=== PATIENT | female | born 1945 | race Caucasian/White ===

== ENCOUNTER 2018-04-12 10:16 | Outpatient (CLI) | payer MEDICARE ==
--- NOTE | 2018-04-12 13:20 | RAD ---
CHEST 2 VIEWS: HISTORY: Dyspnea. COMPARISON: 02/10/10. FINDINGS: Cardiac silhouette and pulmonary vasculature are unremarkable. Mediastinum is midline. No confluent airspace consolidation, pneumothorax, or pleural fluid. Postoperative changes of the left shoulder. IMPRESSION: No active cardiopulmonary abnormalities are demonstrated. POS: [facility]
== END 2018-04-12 10:17 | disposition home or self-care (01) ==
LOC: EKG 10:16
PROVIDERS: ATTEND Psychiatry & Neurology Neurology
DX: R06.00 Dyspnea, unspecified (principal)
CPT/HCPCS: 71046; 93005; 93010

== ENCOUNTER 2018-04-18 12:51 | Observation (INO) | payer MEDICARE ==
[2018-04-18 13:38] LABS: Band 5 % (5-11); Eosinophils 1 % (0-10); Hemoglobin 14.8 g/dL (12.0-16.0); Lymphocytes 5 % (21-51); MDiff Complete? YES; Mean Corpuscular HGB CONC 33.9 g/dL (32.0-36.0); Mean Corpuscular Hemoglobin 27.1 pg (27.0-31.0); Mean Corpuscular Volume 79.9 fL (78.0-98.0); Monocytes 12 % (0-10); Neutrophil 76 % (42-75); PLT Morphology Comment Appears Adequate; Platelet Count 205 thou/uL (130-400); RBC Distribution Width 12.5 % (11.5-14.5); Reactive Lymphocytes 1 % (0-10); Red Blood Cell (RBC) Count 5.45 mill/uL (4.20-5.40); Toxic Granulation SLIGHT; Vacuoles SLIGHT; White Blood Cell (WBC) Count 16.5 thou/uL (4.8-10.8)
--- NOTE | 2018-04-18 13:43 | CT ---
CT OF THE BRAIN WITHOUT CONTRAST: Date: 04/18/18 COMPARISON: MRI brain dated 08/17/14. HISTORY: Syncope. Patient fell and hit head. TECHNIQUE: Multiple contiguous axial images were obtained in a CT of the brain without contrast. FINDINGS: There are a few scattered foci of low density in the subcortical and periventricular white matter, li [place] secondary to small vessel ischemic disease. No large confluent infarction is seen. There is no e vidence of hydrocephalus, intracranial hemorrhage, or extra-axial fluid collection. The calvarium and overlying soft tissues are unremarkable. The visualized paranasal sinuses and masto id air cells are well aerated. IMPRESSION: No evidence of acute intracranial abnormality. POS: [facility]
[2018-04-18 13:45] LABS: ALT (SGPT) 28 U/L (8-55); AST (SGOT) 15 U/L (5-34); Albumin 3.6 g/dL (3.4-4.8); Alkaline Phosphatase 49 U/L (40-150); Anion Gap 17 mmol/L (10-20); BUN (Urea Nitrogen) 21 mg/dL (9.8-20.1); CK (CPK) 16 U/L (29-168); CKMB 0.6 ng/mL (0-6.6); Calc. Creatinine Clearance 0 mL/min (70-130); Calcium 9.7 mg/dL (7.8-10.44); Carbon Dioxide 24 mmol/L (23-31); Chloride 100 mmol/L (98-107); Estimated GFR-MDRD 35; Globulin 2.7 g/dL (2.4-3.5); Glucose 113 mg/dL (80-115); Lipase 17 U/L (8-78); Potassium 3.5 mmol/L (3.5-5.1); Protein, Total 6.3 g/dL (6.0-8.3); Sodium 137 mmol/L (136-145); Troponin I 0.021 ng/mL (< 0.028)
--- NOTE | 2018-04-18 13:45 | RAD ---
SINGLE VIEW CHEST: Date: 04/18/18 COMPARISON: 02/10/10. HISTORY: Vomiting and dizziness. FINDINGS: Single view of the chest shows a normal sized cardiomediastinal silhouette. There is no evidence of c onsolidation, mass, or pleural effusion. Bone anchors are seen in the left humerus from prior left sh oulder surgery. IMPRESSION: No evidence of acute cardiopulmonary disease. POS: [facility]
[2018-04-18 14:24] LABS: Bilirubin Negative (Negative); Blood, Urine Small (Negative); Clarity Cloudy (Clear); Glucose, Urine (Dipstick) Negative (Negative); Leukocyte Moderate (Negative); Nitrite Negative (Negative); Protein, Urine (Dipstick) Trace mg/dL (Neg-Trace); Urobilinogen 0.2 mg/dL (0.2-1.0); pH, Urine 5.5 (5.0-9.0)
[2018-04-18 14:27] LABS: Bacteria/HPF 3+ HPF (None Seen)
[2018-04-18] MEDS ORDERED: cefTRIAXone\\ROCEPHIN 2 GM VIAL ONE (14:30)
[2018-04-18] MEDS ORDERED: Sodium Chloride 0.9% 100 ML ONE (14:30)
--- NOTE | 2018-04-18 15:40 | CT ---
CT ANGIOGRAM OF THE CHEST WITH CONTRAST: 04/18/18 HISTORY: Syncope. COMPARISON: Chest radiograph same day and 2009. FINDINGS: CT angiogram of the chest performed after the intravenous administration of contrast. 3D rendering is provided. Evaluation for embolism is limited due to the delayed phase of contrast. The majority of the contrast is within the aorta and not within the pulmonary vascular system. Within these limitations, no proxi mal segmental pulmonary arterial filling defect is appreciated. The pulmonary trunk size is normal. The aortic size is normal. No pericardial effusion. Heart size is normal. Calcified granuloma left lower lobe. Some scarring in the right upper lobe. No focal air space consol idation, pneumothorax or effusion. No acute osseous abnormality. No thoracic spine compression fractu re. Mid thoracic spine interosseous hemangioma is present. No displaced rib fracture. Prior cholecystectomy. IMPRESSION: 1. Within the limits of this examination, no proximal segmental pulmonary arterial filling defec t. 2. No acute inflammatory process in the chest. POS: [facility]
[2018-04-18 17:25] VITALS: BMI 41.5
[2018-04-18] MEDS ORDERED: Ondansetron ODT 4 MG TAB PO PRN (17:41)
--- NOTE | 2018-04-18 18:00 | PDOC.FPRHP ---
- History of Present Illness Chief Complaint: dizziness History of Present Illness: Pt presented to the [facility] ER after two days of chills and night sweats. Her may have had similar symptoms one week ago. She has not ate or drank much over this time period and has felt increased fatigue over the past week. 2 syncopal episodes over that time period x1 emesis. After the last syncopal episode she had an unwitnessed ground level fall and struck her head. She denies LOC during that time. Similar symptoms for 2 days duration 2 weeks ago, severe diarrheal/vomiting illness 6 weeks ago along with 20 other people. She reports mild L sided chest pain intermitently over the past 3 weeks and diarrhea for the past 6 months. ED Course: transferred from [facility] ER rocephin 2g elevated D-dimer: .52 CBC and CMP ordered CXR, Brain CT, Chest CT, EKG all negative - Allergies/Adverse Reactions Allergies Allergy/AdvReac Type Severity Reaction Status Date / Time hydrocodone [From [place]] Allergy Emesis Verified 04/18/18 17:12 soy Allergy Verified 04/18/18 17:12 - Home Medications Medication Instructions Recorded Confirmed Type Levothyroxine [Synthroid] 150 mcg PO QAM 12/19/13 04/18/18 History Baclofen 10 mg PO QID 04/18/18 04/18/18 History Diazepam [Valium] 2 mg PO TID 04/18/18 04/18/18 History Icosapent Ethyl [Vascepa] 1 gm PO BID- 04/18/18 04/18/18 History Liothyronine Sodium [Cytomel] 5 mcg PO BID 04/18/18 04/18/18 History Triamterene/Hydrochlorothiazid 1 each PO DAILY 04/18/18 04/18/18 History [Dyazide 37.5-25 Capsule] predniSONE 20 mg PO QAM- 04/18/18 04/18/18 History - History PMHx:Multiple Sclerosis, Polymyalgia rhuematica, Hypothyroid PSHx: C-sectionx2, lumbar spine FHx: Early onset heart disease Social: neg. - Review of Systems General: reports: fever/chills, night sweats, fatigue Eyes: denies: eye pain ENT: denies: nasal congestion, rhinorrhea Respiratory: reports: cough, shortness of breath Cardiovascular: reports: chest pain. denies: palpitation, edema Gastrointestinal: reports: nausea, vomiting, diarrhea. denies: constipation, GI bleeding Genitourinary: denies: incontinence Skin: denies: rashes Musculoskeletal: denies: pain, tenderness, stiffness, swelling Neurological: reports: syncope, weakness. denies: numbness, seizure Psychological: denies: anxiety, depression - Vital signs BP: [144/77] HR: [95] RR: [16] Tmax: [97.5] Pox: [96]% on [RA] Wt: [103 kg] - Physical Exam Constitutional: NAD, awake, alert and oriented HEENT: normocephalic and atraumatic, PERRLA, EOMI, grossly normal hearing, oropharynx clear Neck: supple, trachea midline, no thyromegaly, no bruits Chest: no-tender to palpation, no lesions Heart: RRR, normal S1/S2, no murmurs/rubs/gallops, pulses present, no edema Lungs: CTAB, no respiratory distress, good air movement, no rales/rhonchi, no wheezing Abdomen: soft, non-tender, bowel sounds present, no masses/distention Musculoskeletal: normal structure, ROM grossly normal Neurological: no focal deficit, CN II-XII intact Skin: no rash/lesions, no jaundice Heme/Lymphatic: no unusual bruising or bleeding Psychiatric: normal mood and affect FMR H&P: Results - Labs Result Diagrams: 04/18/18 13:21 04/18/18 13:21 Lab results: WBC 16.5 thou/uL (4.8-10.8) H 04/18/18 13:21 Hgb 14.8 g/dL (12.0-16.0) 04/18/18 13:21 Hct 43.6 % (36.0-47.0) 04/18/18 13:21 MCV 79.9 fL (78.0-98.0) 04/18/18 13:21 Plt Count 205 thou/uL (130-400) 04/18/18 13:21 Band Neuts % (Manual) 5 % (5-11) 04/18/18 13:21 Sodium 137 mmol/L (136-145) 04/18/18 13:21 Potassium 3.5 mmol/L (3.5-5.1) 04/18/18 13:21 Chloride 100 mmol/L (98-107) 04/18/18 13:21 Carbon Dioxide 24 mmol/L (23-31) 04/18/18 13:21 BUN 21 mg/dL (9.8-20.1) H 04/18/18 13:21 Creatinine 1.49 mg/dL (0.6-1.1) H 04/18/18 13:21 Glucose 113 mg/dL (80-115) 04/18/18 13:21 Calcium 9.7 mg/dL (7.8-10.44) 04/18/18 13:21 Total Bilirubin 1.0 mg/dL (0.2-1.2) 04/18/18 13:21 AST 15 U/L (5-34) 04/18/18 13:21 ALT 28 U/L (8-55) 04/18/18 13:21 Alkaline Phosphatase 49 U/L (40-150) 04/18/18 13:21 Creatine Kinase 16 U/L (29-168) L 04/18/18 13:21 CK-MB (CK-2) 0.6 ng/mL (0-6.6) 04/18/18 13:21 Serum Total Protein 6.3 g/dL (6.0-8.3) 04/18/18 13:21 Albumin 3.6 g/dL (3.4-4.8) 04/18/18 13:21 Lipase 17 U/L (8-78) 04/18/18 13:21 Urine Ketones Negative mg/dL (Negative) 04/18/18 14:20 Urine Blood Small (Negative) H 04/18/18 14:20 Urine Nitrite Negative (Negative) 04/18/18 14:20 Ur Leukocyte Esterase Moderate (Negative) H 04/18/18 14:20 Urine RBC 7-10 HPF (0-3) H 04/18/18 14:20 Urine WBC 11-20 HPF (0-3) H 04/18/18 14:20 Ur Squamous Epith Cells 7-10 HPF (0-3) H 04/18/18 14:20 Urine Bacteria 3+ HPF (None Seen) H 04/18/18 14:20 - EKG Interpretation EKG: normal sinus rhythm FMR H&P: A/P - Problem List (1) Syncopal episodes Current Visit: Yes Status: Acute Code(s): R55 - SYNCOPE AND COLLAPSE (2) Urinary tract infection Current Visit: Yes Status: Acute (3) Acute kidney injury Current Visit: Yes Status: Acute Code(s): N17.9 - ACUTE KIDNEY FAILURE, UNSPECIFIED (4) Polymyalgia rheumatica Current Visit: Yes Status: Acute Code(s): M35.3 - POLYMYALGIA RHEUMATICA (5) Multiple sclerosis Current Visit: Yes Status: Acute Code(s): G35 - MULTIPLE SCLEROSIS (6) Hypertension Current Visit: Yes Status: Acute Code(s): I10 - ESSENTIAL (PRIMARY) HYPERTENSION - Plan 1. Syncopal episode - hypovolemia vs arrythmia vs structural heart defect - CT, EKG, negative - orthostatics pending - TTE pending 2. Urinary Tract infection - wbc, bacteria, LE in urine - 2g rocephin given in ER - cultures pending 3. Acute kidney injury - BUN/CR elevated - monitor CMP - 140ml/hr LR 4. Chronic diarrhea - C. diff, campy antigen, and lactoferrin pending 5. multiple sclerosis - continue home meds 6. Polymyalgia Rheumatica - continue home meds 7. Hypothyroid - continue home meds - TSH pending Disposition/LOS: Will monitor overnight on telemetry, possible discharge tomorrow FMR H&P: Upper Level - Pertinent history Leanne Tran is a 72 year old female with multiple chronic medical problems who was transferred from [facility] ER due to concern for syncope. Her chief complaint is "chills/shaking" over the past 2 days. She reports falling down after standing up from her recliner. As she was walking to the kitchen, she states that she felt her legs become weak and she fell to the ground and hit her head. She does not believe she lost consciousness during this episode. She states that she heard a buzzing in her ears and felt like her vision was closing in prior to falling. She had a similar episode that occurred yesterday after getting up from the kitchen table. She denied any chest pain, dyspnea, palpitations prior to falling. No shaking, loss of control of bowel/bladder. No vertiginous symptoms. Of note, patient reports chronic diarrhea occurring over the past several weeks. She states that she has at least 6 episodes per day of small volume loose stools. She has undergone some sort of a workup with her type casting machine operator and has follow-up with him/her. In the emergency department, she received ASA 324 mg, a total of 2L NS, and Rocephin 2g. A d-dimer was performed was 0.52. CTA of the chest was negative. - Pertinent findings Vitals: T: 97.5 P: 95 RR: 16 SpO2: 96% on RA BP: 144/77 EKG: sinus arrhythmia; no evidence of ischemia CXR: no acute cardiopulmonary abnormalities CTA chest: CT Head: no acute intracranial abnormality. Physical Exam: General: alert and oriented x 4; in no apparent distress HEENT: normocephalic atraumatic; extraocular muscles intact; pupils equal round , reactive to light. moist mucous membranes Heart: regular rate and rhythm, no murmurs, rubs or gallops. Lungs: clear to auscultation bilaterally; no crackles, wheezes, or rhonchi Abomen: soft, non-tender to palpation Extremities:moves all extremities well; no peripheral edema; peripheral pulses intact Neuro: CN II-XII grossly intact; normal strength/sensation - Plan Date/Time: 04/18/18 1757 IChiqui, have evaluated this patient and agree with findings/plan as outlined by internet specialist resident. Pertinent changes/additions are listed here. 1. Syncope/Near syncope - differentials include neurogenic vs. cardiogenic vs. orthostasis, vs. vestibulocochlear causes vs. generalized weakness/fatigue - we will admit patient to telemetry for observation - Echocardiogram to rule out valvulopathy. - we will obtain orthostatic vitals - if no etiology identified, further outpatient evaluation may be warranted with neurology (Pt sees Dr. Hager) or ENT. 2. Acute kidney injury - Cr increased from baseline of 0.97 - likely related to dehydration. - continue IV fluids. 3. Chronic diarrhea - will order stool studies including fecal lactoferrin, c. diff screen, and campylobacter Ag. 4. Urinary tract infection - Pt has already received rocephin 2g. - will await cultures. 5. Polymyalgia Rheumatica - continue home medications. 6. 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 7. Multiple Sclerosis - continue home medications. 8. Hypertension - continue home medications. Attending Addendum - Attending Addendum Date/Time: 04/19/18 0040 I personally evaluated the patient and discussed the management with Dr. Cancino on 04/18/18 @8521 I agree with the History, Examination, Assessment and Plan documented above with any addition or exceptions noted below- Briefly this is a 72 year old female with h/o multiple sclerosis, polymyalgia rheumatica, and hypothyroidism who presents after a syncopal episode at home. Patient states that she has not been feeling well for about 1 1/2 weeks. She has had poor appetite and has had intermittent shaking chills. she had 2 episodes last week when she felt like she might pass out but was able to sit down and the feeling passed. She had a syncopal episode yesterday but was able to sit down. Today she fell onto the floor. She denies any dysuria, cough, abdominal pain. Does have diarrhea but she has had this for about 6 months with 5-6 loose stools per day. She did have N/V and worsened diarrhea about 6 weeks ago. and other family members were also ill then. PMH/PSH/All/Meds reviewed and agree with residents documentation. Afebrile VSS Exam repeated by me and agree with residents findings. Labs: WBC=16.5 Diff= 76N/5B/5L, BUN/Cr 21/1.49, U/A - sm blood, mod LE , 11-20 WBC, 3+ bacteria. CT brain- no acute findings. EKG- NSR, no st changes. A/P: 1) Syncope - most likely secondary to dehydration - continue IVF - continue cardiac monitors 2) UTI - continue iv antibiotics - urine culture pending 3) Chronic diarrhea - has not been evaluated for this - will send stool studies - may need GI evaluation at some point 4) Polymyalgia rheumatica on chronic po steroids - will give stress dose steroids given acute illness
[2018-04-18] MEDS: Lactated Ringer's 1,000 ML IV SCH (18:15)
[2018-04-18] MEDS: Liothyronine Sodium 5 MCG TAB PO SCH (20:30)
[2018-04-18] MEDS: Diazepam 2 MG TAB PO SCH (20:30)
[2018-04-18] MEDS: Baclofen 10 MG TAB PO SCH (20:30)
[2018-04-18] MEDS ORDERED: predniSONE 20 MG TAB PO SCH (22:00)
[2018-04-18] MEDS: Acetaminophen 325 MG TAB PO PRN (23:08)
[2018-04-19] MEDS: Lactated Ringer's 1,000 ML IV SCH ×3 (01:04→18:31)
[2018-04-19] MEDS: Levothyroxine 150 MCG TAB PO SCH (05:27)
--- NOTE | 2018-04-19 06:01 | PDOC.FM ---
- Subjective Subjective: Pt is feeling well this morning. Last night had subjective chills and home steroid dosage was increased to stress dose to compensate for acute illness. Pt reports feeling significantly better but had sweat through the night. Still no BM for stool studies. No nausea/vomiting since admission. ROS: chills, no fever, no sob or cough, no cp or palpitations, no n/v, no dysuria/hematuria - Objective MAR Reviewed: Yes Vital Signs & Weight: Vital Signs (12 hours) Temp Pulse Resp BP BP BP BP 04/19/18 05:25 97.5 F L 73 16 132/69 04/19/18 00:01 98.2 F 04/18/18 23:05 100.1 F H 132 H 16 144/86 H 04/18/18 20:15 97.7 F 99 16 04/18/18 19:15 97.7 F 99 16 129/75 153/88 H 131/66 Pulse Ox 04/19/18 05:25 96 04/19/18 00:01 04/18/18 23:05 94 L 04/18/18 20:15 04/18/18 19:15 95 Weight Weight 103.107 kg I&O: 04/17/18 04/18/18 04/19/18 06:59 06:59 06:59 Intake Total 2375 Output Total 750 Balance 1625 Result Diagrams: 04/19/18 05:54 04/19/18 05:54 <Kodi Gamez - Last Filed: 04/19/18 08:44> - Objective Vital Signs & Weight: Vital Signs (12 hours) Temp Pulse Pulse Pulse Resp BP BP 04/19/18 11:04 97.7 F 85 18 04/19/18 09:55 87 100 175/86 H 195/90 H 04/19/18 08:31 77 04/19/18 08:00 97.5 F L 77 16 04/19/18 07:10 97.5 F L 83 18 04/19/18 05:25 97.5 F L 73 16 BP BP BP BP Pulse Ox 04/19/18 11:04 141/73 H 95 04/19/18 09:55 04/19/18 08:31 130/73 163/89 H 138/75 04/19/18 08:00 04/19/18 07:10 127/77 95 04/19/18 05:25 132/69 96 Weight Weight 103.107 kg I&O: 04/18/18 04/19/18 04/20/18 06:59 06:59 06:59 Intake Total 2375 600 Output Total 750 1500 Balance 1625 -900 Result Diagrams: 04/19/18 05:54 04/19/18 05:54 <GabrielaFelicia - Last Filed: 04/19/18 16:20> Phys Exam - Physical Examination Constitutional: NAD HEENT: moist MMs, sclera anicteric Respiratory: no wheezing, clear to auscultation bilateral Cardiovascular: RRR, no significant murmur Gastrointestinal: soft, non-tender, positive bowel sounds Musculoskeletal: no edema Psychiatric: normal affect Skin: no rash, normal turgor <Kodi Gamez - Last Filed: 04/19/18 08:44> Dx/Plan (1) Syncopal episodes Code(s): R55 - SYNCOPE AND COLLAPSE Status: Acute (2) Gastroenteritis Code(s): K52.9 - NONINFECTIVE GASTROENTERITIS AND COLITIS, UNSPECIFIED Status : Acute (3) Urinary tract infection Status: Acute (4) Multiple sclerosis Code(s): G35 - MULTIPLE SCLEROSIS Status: Acute (5) Polymyalgia rheumatica Code(s): M35.3 - POLYMYALGIA RHEUMATICA Status: Acute (6) Diarrhea Code(s): R19.7 - DIARRHEA, UNSPECIFIED Status: Acute (7) Hypertension Code(s): I10 - ESSENTIAL (PRIMARY) HYPERTENSION Status: Acute - Plan Plan: Syncope/near syncope A- Likely due to hypovolemia. differentials include neurogenic vs. cardiogenic vs. vestibulocochlear causes vs. generalized weakness/fatigue. P- Echocardiogram to rule out valvulopathy. - if no etiology identified, further outpatient evaluation may be warranted with neurology (Pt sees Dr. Hager) or ENT. Urinary tract infection A- Pt has already received rocephin 2g. P- will await cultures. Acute kidney injury A- Cr increased from baseline of 0.97, likely related to dehydration. P- continue IV fluids. Gastritis/chronic diarrhea A- pt reports 6 month history of diarhea with recent nausea/vomiting on three separate occasions P- ordered stool studies including fecal lactoferrin, c. diff screen, and campylobacter Ag. Polymyalgia Rheumatica A- Pt experienced chills last night. 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 Multiple Sclerosis - continue home medications. Hypertension - continue home medications. <Kodi Gamez - Last Filed: 04/19/18 08:44> Attending Addendum - Attending Addendum Date/Time: 04/19/18 1734 I personally evaluated the patient and discussed the management with Dr. Gamez. I agree with the History, Examination, Assessment and Plan documented above with any addition or exceptions noted below. The patient presented with syncopal episode. Found to have UTI. Culture is pending. She also has MS and her steroids were increased last night and this morning she is feeling much better. No diarrhea this morning. Will had carotid doppler. Echo results pending. If all tests are ok she will like dc home today or tomorrow. <Felicia Ochoa - Last Filed: 04/19/18 16:20>
[2018-04-19 06:23] LABS: #Basophils 0.1 thou/uL (0.0-0.2); #Lymphocytes 0.5 thou/uL (1.20-3.40); #Monocytes 0.3 thou/uL (0.11-0.59); #Neutrophils 11.9 thou/uL (1.40-6.50); %Basophils 0.5 % (0.0-1.0); %Eosinophils 0.1 % (0.0-10.0); %Monocytes 2.1 % (0.0-10.0); %Neutrophils 93.2 % (42.0-75.0); Hemoglobin 14.4 g/dL (12.0-16.0); Mean Corpuscular HGB CONC 33.1 g/dL (32.0-36.0); Mean Corpuscular Hemoglobin 28.2 pg (27.0-31.0); Mean Corpuscular Volume 85.1 fL (78.0-98.0); Mean Platelet Volume 7.2 fL (7.4-10.4); Platelet Count 185 thou/uL (130-400); RBC Distribution Width 13.7 % (11.5-14.5); White Blood Cell (WBC) Count 12.7 thou/uL (4.8-10.8)
[2018-04-19 06:44] LABS: Anion Gap 12 mmol/L (10-20); BUN (Urea Nitrogen) 16 mg/dL (9.8-20.1); Calc. Creatinine Clearance 75 mL/min (70-130); Calcium 8.8 mg/dL (7.8-10.44); Carbon Dioxide 24 mmol/L (23-31); Chloride 105 mmol/L (98-107); Estimated GFR-MDRD 48; Glucose 195 mg/dL (80-115); Potassium 3.5 mmol/L (3.5-5.1); Sodium 137 mmol/L (136-145)
[2018-04-19] MEDS ORDERED: (Icosapent Ethyl [Vascepa] 1 GM) PO SCH (08:00)
[2018-04-19] MEDS ORDERED: predniSONE 20 MG TAB PO SCH (08:00)
[2018-04-19] MEDS: predniSONE 20 MG TAB PO SCH (08:09)
[2018-04-19] MEDS: Diazepam 2 MG TAB PO SCH ×3 (08:09→21:41)
[2018-04-19] MEDS: Baclofen 10 MG TAB PO SCH ×4 (08:09→21:41)
[2018-04-19] MEDS: Triamterene/Hydrochlorothiazide 37.5 mg/25 mg Tablet PO SCH (08:09)
[2018-04-19] MEDS: Liothyronine Sodium 5 MCG TAB PO SCH ×2 (09:39→21:41)
[2018-04-19] MEDS ORDERED: cefTRIAXone\\ROCEPHIN 2 GM VIAL IM SCH (14:00)
--- NOTE | 2018-04-19 14:47 | ULT ---
CAROTID DUPLEX SONOGRAM: History: Syncope. Vascular disease. FINDINGS: Right: Color and spectral doppler evaluation, peak systolic velocity of 87 cm/sec, and IC to CC ratio of 1.1 suggests no hemodynamically significant stenosis within the extracranial right ICA. Posterior to the distal common carotid artery, an arterial structure shows waveform suggestive of a muscular c apillary bed distally. Left: No significant plaque. Color and spectral doppler evaluation, peak systolic velocity of 79 cm/s ec, and IC to CC ratio of 0.7 suggests no hemodynamically significant stenosis within the extracrania l left ICA. Antegrade flow within the vertebral artery. Posterior to the distal common carotid artery , an arterial structure shows high resistance of pulsatility. IMPRESSION: 1. No sonographic evidence of significant extracranial ICA stenosis. 2. 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 CT arteriogram of the neck could be used for further characterization if needed. POS: [facility]
[2018-04-19] MEDS ORDERED: cefTRIAXone\\ROCEPHIN 2 GM in Sodium Chloride 0.9% 100 ML IVPB SCH (15:00)
[2018-04-19] MEDS: Acetaminophen 325 MG TAB PO PRN (16:09)
--- NOTE | 2018-04-19 17:06 | EKG ---
Test Reason : STAT Blood Pressure : / mmHG Vent. Rate : 107 BPM Atrial Rate : 107 BPM P-R Int : 120 ms QRS Dur : 080 ms QT Int : 306 ms P-R-T Axes : 001 -12 016 degrees QTc Int : 408 ms Sinus tachycardia with Premature atrial complexes Inferior infarct , age undetermined Abnormal ECG When compared with ECG of 12-APR-2018 11:21, (Unconfirmed) Premature atrial complexes are now Present Confirmed by DR. Juan YANG ([id number]) on 04/19/2018 5:05:47 PM Referred By: SOM Confirmed By:DR. Juan YANG
[2018-04-20] MEDS: Levothyroxine 150 MCG TAB PO SCH (05:56)
--- NOTE | 2018-04-20 06:16 | PDOC.FM ---
- Subjective Subjective: 72 yo female seen this AM. Patient is in good mood. Patient states she is ready to be discharged. She states that her diarrhea returned yesterday, but was unable to give sample because of urine contamination. Patient denies any lightheadedness, vision changes, chest pain, or SOB. Patient states that she has GI follow up as outpatient and her colon problems have been present for 6 months. No other complaints today. - Objective Vital Signs & Weight: Vital Signs (12 hours) Temp Pulse Resp BP Pulse Ox 04/20/18 04:49 97.8 F 77 22 H 155/74 H 95 04/20/18 00:08 97.7 F 73 20 164/87 H 97 04/19/18 20:20 99 F 74 21 H 157/74 H 92 L 04/19/18 20:05 99 F 74 21 H Weight Weight 103.107 kg I&O: 04/18/18 04/19/18 04/20/18 06:59 06:59 06:59 Intake Total 2375 2660 Output Total 750 1650 Balance 1625 1010 Result Diagrams: 04/19/18 05:54 04/19/18 05:54 <Arnulfo Soria - Last Filed: 04/20/18 07:23> - Objective Vital Signs & Weight: Vital Signs (12 hours) Temp Pulse Resp BP Pulse Ox 04/20/18 09:30 168/90 H 04/20/18 08:15 98.4 F 89 16 04/20/18 07:30 98.4 F 89 16 195/112 H 96 04/20/18 04:49 97.8 F 77 22 H 155/74 H 95 04/20/18 00:08 97.7 F 73 20 164/87 H 97 Weight Weight 103.107 kg I&O: 04/19/18 04/20/18 04/21/18 06:59 06:59 06:59 Intake Total 2375 2660 Output Total 750 2550 Balance 1625 110 Result Diagrams: 04/19/18 05:54 04/19/18 05:54 <Felicia Ochoa - Last Filed: 04/20/18 10:01> Phys Exam - Physical Examination Constitutional: NAD HEENT: PERRLA, moist MMs Neck: no nodes Respiratory: no wheezing, clear to auscultation bilateral Cardiovascular: RRR, no significant murmur Gastrointestinal: soft, non-tender, no distention, positive bowel sounds Musculoskeletal: no edema, pulses present Neurological: non-focal, normal sensation, moves all 4 limbs Lymphatic: no nodes Psychiatric: normal affect, A&O x 3 Skin: no rash <Arnulfo Soria - Last Filed: 04/20/18 07:23> Dx/Plan (1) Syncopal episodes Code(s): R55 - SYNCOPE AND COLLAPSE Status: Acute (2) Urinary tract infection Status: Acute (3) Acute kidney injury Code(s): N17.9 - ACUTE KIDNEY FAILURE, UNSPECIFIED Status: Resolved (4) Diarrhea Code(s): R19.7 - DIARRHEA, UNSPECIFIED Status: Acute (5) Gastroenteritis Code(s): K52.9 - NONINFECTIVE GASTROENTERITIS AND COLITIS, UNSPECIFIED Status : Acute (6) Hypertension Code(s): I10 - ESSENTIAL (PRIMARY) HYPERTENSION Status: Acute (7) Multiple sclerosis Code(s): G35 - MULTIPLE SCLEROSIS Status: Acute (8) Polymyalgia rheumatica Code(s): M35.3 - POLYMYALGIA RHEUMATICA Status: Acute - Plan Plan: Syncope/near syncope - Likely due to hypovolemia. - Echocardiogram to rule out valvulopathy. Awaiting read. - Carotid dopplers negative Urinary tract infection - Pt has already received rocephin 2g. - will await cultures for further treatment Acute kidney injury - Cr increased from baseline of 0.97, likely related to dehydration. - D/C IVF. Gastritis/chronic diarrhea - pt reports 6 month history of diarrhea with recent nausea/vomiting on three separate occasions - ordered stool studies including fecal lactoferrin, c. diff screen, and campylobacter Ag. - haven't obtained sample yet - May be better for outpatient follow up. Polymyalgia Rheumatica - Continue home steroid doses Hypothyroidsm - continue home medications. - TSH low, but T4 appropriate Multiple Sclerosis - continue home medications. Hypertension - continue home medications. Disposition: Stable, patient can be discharged once echo read is received. <Arnulfo Soria - Last Filed: 04/20/18 07:23> Attending Addendum - Attending Addendum Date/Time: 04/20/18 0955 I personally evaluated the patient and discussed the management with Dr. Soria. I agree with the History, Examination, Assessment and Plan documented above with any addition or exceptions noted below. Changing to PO antibiotics. Pt is feeling better and wants to go home. Echo has been taken but hasn't resulted. Carotid doppler is negative. Today is last day for stress dose steroids. Pt will likely d/c this afternoon and we will f/u with the echo results as an outpt. She has follow-up with Dr. Swanson on Sunday. She will also f/u with GI as an outpt as she has been unable to give stool sample. <Felicia Ochoa - Last Filed: 04/20/18 10:01>
[2018-04-20] MEDS ORDERED: Nitrofurantoin Monohyd/M-Cryst 100 MG CAP PO SCH ×2 (07:00→21:00)
[2018-04-20] MEDS: Diazepam 2 MG TAB PO SCH (08:36)
[2018-04-20] MEDS: predniSONE 20 MG TAB PO SCH (08:36)
[2018-04-20] MEDS: Triamterene/Hydrochlorothiazide 37.5 mg/25 mg Tablet PO SCH (08:36)
[2018-04-20] MEDS: Baclofen 10 MG TAB PO SCH (08:36)
[2018-04-20] MEDS: Liothyronine Sodium 5 MCG TAB PO SCH (08:36)
[2018-04-20 11:41] VITALS: BP 135/87; TEMP 98.1
--- NOTE | 2018-04-23 08:15 | DIS-2 ---
DATE OF ADMISSION: 04/18/2018 DATE OF DISCHARGE: 04/20/2018 RESIDENT: Kodi Gamez MD ADMITTING ATTENDING: Lia Estes MD DISCHARGE ATTENDING: Felicia Ochoa MD CONSULTATION: None. PROCEDURES: Include; 1. Chest x-ray on 04/18/2018, reading, no evidence of acute pulmonary disease. 2. Brain CT on 04/18/2018, reading, no evidence of acute intracranial abnormality. 3. Chest thorax CTA reading within the limits of this examination, no proximal segmental pulmonary a rterial filling defect. No acute inflammatory process in the chest. 4. Carotid Doppler study, this is on 04/19/2018, reading, no sonographic evidence of significant ext racranial ICA stenosis. Arterial structures just posterior to each distal common carotid artery, may reflect congenital variant in early branching of an external carotid branch. CT arteriogram of the neck could be used for further characterization if needed. 5. Electrocardiogram on 04/19/2018, reading, sinus tachycardia with premature atrial complexes, infe rior infarct, age undetermined. When compared with ECG of 04/12/2018, premature atrial complexes are now present. 6. Echocardiogram report, reading, technically inadequate exam, recommend a repeat exam. Ejection f raction is visually estimated at 55-60%, normal left atrium, left ventricular size is normal. Aortic valve leaflets are somewhat thickened. The aortic valve leaflets were not well visualized. PRIMARY DIAGNOSES: Syncope, likely due to hypovolemia and UTI and chronic diarrhea. SECONDARY DIAGNOSES: Include acute kidney injury, gastritis, polymyalgia rheumatica, multiple sclero sis, hypothyroidism, and hypertension. DISCHARGE MEDICATIONS: Include levothyroxine 150 mcg p.o. q.a.m., diazepam 2 mg p.o. t.i.d., baclofe n 10 mg p.o. q.i.d., icosapent ethyl 1 gram p.o. b.i.d. with meal, liothyronine sodium 5 mcg p.o. b.i .d., prednisone 20 mg p.o. q.a.m., triamterene and hydrochlorothiazide 37.5/25 capsule 1 capsule p.o. daily, nitrofurantoin 100 mg p.o. b.i.d. 5 days and prednisone 60 mg p.o. q.a.m. 1 day. HISTORY OF PRESENT ILLNESS AND HOSPITAL COURSE: This is a 72-year-old female with medical history of multiple sclerosis, polymyalgia rheumatica, and hypothyroidism, presenting for 2 days of chills and night sweats with associated decreased p.o. intake. Patient reports a 6-month history of diarrhea an d 2 episodes of unwitnessed syncope, reporting a ground-level fall with no loss of consciousness. Sh e also reports mild left chest pain for the last 3 weeks intermittently and similar symptoms of fever s, chills, and night sweats 2 weeks ago and 6 weeks ago. At the ED, the patient received a chest x-r ay which was negative, head CT which was negative, chest CT which was negative, and an EKG which was negative. White blood count in the ER was 16.5. BUN and creatinine was 21 and 1.49, heart rate in [facility] ED was 95. She was given 2 liters normal saline and 2 grams of Rocephin. Later evaluation showed her to have a UTI with cultures later growing E. coli. An echo was later done to evaluate for valvu lar problems, which was negative. Orthostatics were done, which were also negative. Carotid Doppler s were done, which were also negative. Upon receiving IV fluids, the patient began to feel much bett er. Other hospital complications were her first night she began to feel chills, so she was started o n a 3-day increase stress dose of her home medication prednisone. Over the course of 2 days, her sym ptoms of diarrhea were resolved as were her chills and night sweats. After ruling out acutely danger ous causes of syncope, she was discharged home. There were no consults. DISPOSITION: Stable. DISCHARGE INSTRUCTIONS: Include: 1. Location: Discharge home. 2. Diet: Healthy heart diet. 3. Activity: As tolerated. 4. Followup: Follow up with her PCP, Dr. Swanson within 1-2 weeks with her neurologist, Dr. Hager with in 1-2 weeks and with a GI specialist within 1-2 weeks.
== END 2018-04-20 12:56 | disposition home or self-care (01) ==
LOC: SCSER 12:51 → 2SW 14:58
PROVIDERS: ADMIT Emergency Medicine; ATTEND Emergency Medicine
DX: R55 Syncope and collapse (principal); N39.0 Urinary tract infection, site not specified; K52.9 Noninfective gastroenteritis and colitis, unspecified; N17.9 Acute kidney failure, unspecified; M35.3 Polymyalgia rheumatica; E03.9 Hypothyroidism, unspecified; I10 Essential (primary) hypertension; G35 Multiple sclerosis; Z79.899 Other long term (current) drug therapy
CPT/HCPCS: 70450; 71045; 71275; 80048; 80053; 82533 ×2; 82550; 82553; 83690; 84439; 84443; 84484; 85025 ×2; 85379; 87077; 87086; 87186; 93005 ×2; 93306; 93880; 96361 ×3; 96365; 96366; 97139 ×2; 99285; G0378; G8978; G8979; G8980; 36415; 81003; 81015; 93010; J0696; J7050; J7506

== ENCOUNTER 2018-06-10 11:56 | Outpatient (CLI) | payer MEDICARE | END 2018-06-10 11:57 | disposition home or self-care (01) | LOC: BICRAD 11:56 | PROVIDERS: ATTEND Family Medicine | DX: S92.502A Displaced unspecified fracture of left lesser toe(s), initial encounter for closed fracture (principal) ==

== ENCOUNTER 2019-02-06 08:28 | Outpatient (CLI) | payer MEDICARE ==
--- NOTE | 2019-02-06 09:53 | CT ---
CT ABDOMEN AND PELVIS WITH CONTRAST: COMPARISON: 01/24/2017. HISTORY: Chronic diarrhea. TECHNIQUE: Multiple contiguous axial images were obtained in a CT of the abdomen and pelvis with contrast. P.o. contrast was administered. Coronal reformats were performed. FINDINGS: There is scattered diverticula in the colon. There is an area of focal thickening of the sigmoid col on measuring approximately 2.7 cm in length. This was not seen on the prior examination. No free ai r, free fluid, or stranding changes are seen in the abdomen or pelvis. The small bowel and appendix are unremarkable. The patient is status post cholecystectomy. A small amount of hypodensity adjacent to the falciform ligament likely represents focal fatty infiltration. Calcifications in the liver and spleen are from prior granulomatous disease. The kidneys, adrenal glands, and pancreas are unremarkable. No abdominal or pelvic lymphadenopathy are seen. The reproductive organs are unremarkable. Atherosc lerotic calcifications are seen in the aorta. Degenerative changes and postsurgical changes are seen in the spine. The abdominal wall soft tissues are unremarkable. There is a calcified granuloma in the left lung base. IMPRESSION: 1. Diverticulosis. 2. Focal thickening within the sigmoid colon. Although this could represent scarring from inflammat ory change from prior diverticulitis, a colonic mass is also a possibility. POS: [facility]
[2019-02-06] MEDS ORDERED: ISOVUE-370 76%-LOCM 1 ML ONE (11:12)
== END 2019-02-06 08:29 | disposition home or self-care (01) ==
LOC: BICCT 08:28
PROVIDERS: ATTEND Internal Medicine Gastroenterology
DX: K52.9 Noninfective gastroenteritis and colitis, unspecified (principal); M19.90 Unspecified osteoarthritis, unspecified site; K57.30 Diverticulosis of large intestine without perforation or abscess without bleeding; K63.89 Other specified diseases of intestine
CPT/HCPCS: 74177; 82565; Q9966

== ENCOUNTER 2019-02-20 06:19 | Emergency (ER) | payer MEDICARE ==
[2019-02-20] MEDS ORDERED: Nitroglycerin 2% Ointment 1 INCH/1 GM Packet ONE (07:02)
[2019-02-20] MEDS ORDERED: Aspirin Chewable 81 MG TAB ONE (07:02)
[2019-02-20 07:20] LABS: #Basophils 0.1 thou/uL (0.0-0.2); #Eosinphils 0.2 thou/uL (0.0-0.7); #Lymphocytes 2.1 thou/uL (1.20-3.40); #Monocytes 0.6 thou/uL (0.11-0.59); #Neutrophils 4.5 thou/uL (1.40-6.50); %Basophils 0.8 % (0.0-1.0); %Eosinophils 2.4 % (0.0-10.0); %Lymphocytes 28.6 % (21.0-51.0); %Monocytes 7.9 % (0.0-10.0); %Neutrophils 60.3 % (42.0-75.0); Hemoglobin 13.2 g/dL (12.0-16.0); Mean Corpuscular HGB CONC 31.2 g/dL (32.0-36.0); Mean Corpuscular Hemoglobin 26.5 pg (27.0-31.0); Mean Platelet Volume 8.4 fL (7.4-10.4); Platelet Count 210 thou/uL (130-400); RBC Distribution Width 14.4 % (11.5-14.5); Red Blood Cell (RBC) Count 4.97 mill/uL (4.20-5.40); White Blood Cell (WBC) Count 7.4 thou/uL (4.8-10.8)
[2019-02-20 07:37] LABS: ALT (SGPT) 27 U/L (8-55); AST (SGOT) 21 U/L (5-34); Albumin 3.9 g/dL (3.4-4.8); Alkaline Phosphatase 45 U/L (40-150); Anion Gap 13 mmol/L (10-20); BUN (Urea Nitrogen) 20 mg/dL (9.8-20.1); Bilirubin, Total 0.7 mg/dL (0.2-1.2); CK (CPK) 77 U/L (29-168); Calc. Creatinine Clearance 0 mL/min (70-130); Calcium 8.9 mg/dL (7.8-10.44); Carbon Dioxide 21 mmol/L (23-31); Chloride 110 mmol/L (98-107); Estimated GFR-MDRD 57; Globulin 2.3 g/dL (2.4-3.5); Glucose 100 mg/dL (83-110); Lipase 20 U/L (8-78); Potassium 3.3 mmol/L (3.5-5.1); Protein, Total 6.2 g/dL (6.0-8.3); Sodium 141 mmol/L (136-145)
--- NOTE | 2019-02-20 07:46 | RAD ---
Chest AP view INDICATION: Chest pain COMPARISON: April 18, 2018 FINDINGS: Lungs:The lungs are clear Cardiac silhouette pulmonary vasculature:The cardiomediastinal silhouette appears within normal limit s. Pleural spaces:No pleural effusion or pneumothorax is demonstrated. Upper abdomen:No abnormality seen. Osseous structures: There is scattered degenerative and osteoarthritic change present. There is stabl e postsurgical change of a left rotator cuff repair. IMPRESSION: No acute cardiopulmonary abnormality.
--- NOTE | 2019-02-20 09:57 | CT ---
CT arteriogram chest with IV contrast and 3-D imaging HISTORY: Chest pain. COMPARISON: 04/18/2018. FINDINGS: There is good contrast opacification pulmonary arteries and thoracic aorta with normal bran jaime of the great vessels at the aortic arch. Calcification in the arterial structures. Mild linear scarring within the anterior aspect of the right upper lobe. No pleural fluid or pneumothorax. No mediastinal adenopathy evident. IMPRESSION: No CT evidence of pulmonary embolus. Atherosclerosis.
[2019-02-20] MEDS ORDERED: ISOVUE-370 76%-LOCM 1 ML ONE (11:43)
--- NOTE | 2019-02-22 19:39 | EKG ---
Test Reason : REPEAT Blood Pressure : / mmHG Vent. Rate : 073 BPM Atrial Rate : 073 BPM P-R Int : 128 ms QRS Dur : 076 ms QT Int : 370 ms P-R-T Axes : -03 -07 014 degrees QTc Int : 407 ms Normal sinus rhythm Minimal voltage criteria for LVH, may be normal variant Cannot rule out Anterior infarct , age undetermined Abnormal ECG Confirmed by JADIEL CLAYTON DO ([id number]), senior editor NEISHA MURO ([id number]) on 02/22/2019 7:37:33 PM Referred By: Confirmed By:JADIEL CLAYTON DO
== END 2019-02-20 11:33 | disposition home or self-care (01) ==
LOC: ERS 06:19
DX: R07.9 Chest pain, unspecified (principal); E03.9 Hypothyroidism, unspecified; G35 Multiple sclerosis; M35.3 Polymyalgia rheumatica; I10 Essential (primary) hypertension; Z79.899 Other long term (current) drug therapy
CPT/HCPCS: 36415; 71045; 71275; 80053; 82550; 83690; 83880; 84484; 85025; 85379; 93005; 96360; 96361; Q9966

== ENCOUNTER 2019-04-02 09:26 | Outpatient (CLI) | payer MEDICARE ==
--- NOTE | 2019-04-02 09:58 | MMO ---
Bilateral MAMMO Bilat Screen [facility]. CLINICAL HISTORY: Patient is 73 years old and is seen for screening. The patient has no family history of breast cancer. The patient has no personal history of cancer. VIEWS: The views performed were: bilateral craniocaudal with tomosynthesis and bilateral mediolateral oblique with tomosynthesis. FILMS COMPARED: The present examination has been compared to prior imaging studies performed at [facility] on 01/27/2010, 02/15/2011, 01/30/2013 and 09/28/2016. MAMMOGRAM FINDINGS: There are scattered fibroglandular densities. There are stable benign appearing calcifications seen in both breasts. There are no suspicious masses, suspicious calcifications, or new areas of architectural distortion. IMPRESSION: THERE IS NO MAMMOGRAPHIC EVIDENCE OF MALIGNANCY. A ROUTINE FOLLOW-UP MAMMOGRAM IN 1 YEAR IS RECOMMENDED. THE RESULTS OF THIS EXAM WERE SENT TO THE PATIENT. ACR BI-RADS Category 2 - Benign finding MAMMOGRAPHY NOTE: 1. A negative mammogram report should not delay a biopsy if a dominant of clinically suspicious mass is present. 2. Approximately 10% to 15% of breast cancers are not detected by mammography. 3. Adenosis and dense breasts may obscure an underlying neoplasm.
--- NOTE | 2019-04-02 10:57 | BD ---
DEXA BONE DENSITOMETRY: (Dual energy X-ray Absorptiometry) HISTORY: A 73-year-old white female for postmenopausal screening examination, baseline. Height 62 in. Weight 223 lbs. Age of menopause 55 years. COMPARISON: None available. TECHNIQUE: Because of metallic hardware in the lumbar spine, the lumbar spine was not evaluated. Instead, bilat eral hips were evaluated. FINDINGS: The bone mineral density (BMD) is given in grams per square centimeter (g/cm2): RIGHT HIP: BMD(g/cm2) T-score Z-score Femoral neck: 0.524 -2.9 -1.0 Total: 0.702 -2.0 -0.4 LEFT HIP: Femoral neck: 0.509 -3.1 -1.2 Total: 0.725 -1.8 -0.2 IMPRESSION: The bone mineral density of the femoral neck is osteoporotic. Fracture risk is high. ANGÉLICA Fontana POS: [facility]
== END 2019-04-02 09:27 | disposition home or self-care (01) ==
LOC: BICMAMMO 09:26
PROVIDERS: ATTEND Family Medicine
DX: Z12.31 Encounter for screening mammogram for malignant neoplasm of breast (principal); Z13.820 Encounter for screening for osteoporosis; M81.0 Age-related osteoporosis without current pathological fracture
CPT/HCPCS: 77063; 77067; 77080

== ENCOUNTER 2019-04-24 09:31 | Outpatient (CLI) | payer MEDICARE ==
--- NOTE | 2019-04-24 10:59 | RAD ---
DOUBLE CONTRAST ESOPHAGRAM: CLINICAL HISTORY: Chest pain, esophageal spasms. FINDINGS: Real-time fluoroscopy performed with patient ingesting liquid barium, as well as effervescent crystal s and 12.5 mm barium tablet. Contrast freely passes the oral cavity into the esophagus. There are tertiary esophageal contractions visualized during real-time assessment. No evidence of persistent mass or constricting lesion. No hiatal hernia or significant gastroesophageal reflux. IMPRESSION: 1. Tertiary esophageal contractions. 2. No evidence of significant reflux, hiatal hernia, or persistent mass effect of the esophagus. Transcribed Date/Time: 04/24/2019 11:08 AM
== END 2019-04-24 09:32 | disposition home or self-care (01) ==
LOC: RAD 09:31
PROVIDERS: ATTEND Family Medicine
DX: K21.9 Gastro-esophageal reflux disease without esophagitis (principal); K22.4 Dyskinesia of esophagus; K31.89 Other diseases of stomach and duodenum
CPT/HCPCS: 74220

== ENCOUNTER 2019-08-05 12:49 | Outpatient (CLI) | payer MEDICARE ==
--- NOTE | 2019-08-05 13:23 | ULT ---
RENAL ULTRASOUND: INDICATIONS: Recurrent UTI. FINDINGS: The right kidney measures approximately 9 cm in length. The left kidney measures 9.5 cm in length. Th ere is no hydronephrosis. There is cortical thinning bilaterally. Multiple echogenic foci seen bilaterally. Tiny renal calculi are not excluded. The urinary bladder is mildly distended and unremarkable. IMPRESSION: Bilateral cortical thinning. Tiny echogenic foci could potentially represent tiny calculi. Renal ultr asound otherwise unremarkable. POS: DAYAN
== END 2019-08-05 12:50 | disposition home or self-care (01) ==
LOC: BICULT 12:49
PROVIDERS: ATTEND Family Medicine
DX: N39.0 Urinary tract infection, site not specified (principal); N28.89 Other specified disorders of kidney and ureter
CPT/HCPCS: 76770

== ENCOUNTER 2019-08-15 13:28 | Outpatient (CLI) | payer MEDICARE ==
--- NOTE | 2019-08-15 14:36 | RAD ---
LUMBAR SPINE 2 VIEWS: INDICATION: Acute low back pain. COMPARISON: Prior exam dated April 02, 2014. FINDINGS: The interbody fixation at L4-5 appears similar appearing. Lucency surrounding the L4 and L5 pedicle s crews appears stable. Multilevel spondylosis of the lumbar spine is expected again noted. There is slightly worsening disc degenerative disease at L3-4. Grade 1 anterolisthesis of L4 and L5 is noted. The degree of anterolisthesis appears slightly more prominent. There is new retrolisthesis of L1 on L2. IMPRESSION: Worsening grade 1 anterolisthesis of L4 and L5. There is lucency surrounding the pedicle screws at L4 and L5 suspicious for loosening of the hardware. There is new retrolisthesis of L1 on L2. There is worsening disc degenerative disease at L3-4. Transcribed Date/Time: 08/15/2019 2:43 PM
--- NOTE | 2019-08-15 14:43 | RAD ---
XR Hip Rt 2-3 View INDICATION: Right hip pain COMPARISON: None FINDINGS: Bones: There is a 1 cm calcific density overlying the anterior aspect of the right greater trochanter suspicious for a focus of calcific tendinosis likely within the right gluteus minimus tendon. Hip joint: There is mild right hip osteoarthrosis. SI joints and symphysis pubis: Radiographically normal. Intrapelvic contents: There is a small phleboliths within the lower left hemipelvis. Surrounding soft tissues: Radiographically normal. IMPRESSION: 1. Mild right hip osteoarthrosis. Calcific tendinosis of the right hip.
--- NOTE | 2019-08-15 14:43 | RAD ---
XR Hip Lt 2-3 View INDICATION: Left hip pain COMPARISON: None FINDINGS: Bones: No acute osseous abnormality. Bone mineralization appears within normal limits. Hip joint: There is mild left hip osteoarthrosis. SI joints and symphysis pubis: Radiographically normal. Intrapelvic contents: Small phleboliths within the lower left hemipelvis. Surrounding soft tissues: Radiographically normal. IMPRESSION: 1. Mild left hip osteoarthrosis.
== END 2019-08-15 13:29 | disposition home or self-care (01) ==
LOC: BICRAD 13:28
PROVIDERS: ATTEND Family Medicine
DX: M54.9 Dorsalgia, unspecified (principal); M16.0 Bilateral primary osteoarthritis of hip; M67.951 Unspecified disorder of synovium and tendon, right thigh; M51.36 Other intervertebral disc degeneration, lumbar region; M43.16 Spondylolisthesis, lumbar region
CPT/HCPCS: 72100

== ENCOUNTER 2019-08-25 09:21 | Outpatient (CLI) | payer MEDICARE ==
--- NOTE | 2019-08-25 09:58 | CT ---
CT OF THE LUMBAR SPINE: DATE: 08/25/2019. HISTORY: Low back pain, prior spinal fusion, bilateral hip pain/radiculopathy. TECHNIQUE: Axial CT imaging at 3 mm intervals from the lower thoracic spine through the lower sacrum with pitts l and sagittal reformatted imaging. FINDINGS: Evaluation for central canal and/or neural foraminal stenosis is limited on routine CT examination. There is scattered atherosclerotic calcification of the abdominal aorta. There is diverticulosis of t he partially visualized sigmoid colon. T12-L1: There is disc space narrowing with anterior osteophyte formation and mild disc bulge. No osse ous cause of significant central canal or neural foraminal stenosis. L1-2: Mild disc bulge. Mild bilateral facet hypertrophy. No osseous cause of significant central adolfo l or neural foraminal stenosis. L2-3: There is bilateral facet and uncovertebral osteophyte formation with no osseous cause of signif icant central canal or neural foraminal stenosis. L3-4: Bilateral facet and uncovertebral osteophyte formation. Probable mild central canal stenosis. N o osseous cause of significant neural foraminal stenosis on either side. L4-5: 6 mm of anterolisthesis of L4 on L5. Bilateral facet hypertrophy. Moderate bilateral neural for aminal stenosis is suspected. There is at least mild central canal stenosis, not well assessed on this examination secondary to artifact from postoperative hardware. Bilateral L4 and L5 pedicle screw s are present with vertically oriented interlocking rods. There is lucency adjacent to bilateral L5 pedicle screws suggesting hardware loosening. L5-S1: Bilateral facet hypertrophy present. There is disc space narrowing with vacuum disc formation and degenerative endplate change. Mild/moderate right neural foraminal stenosis and moderate/severe left neural foraminal stenosis suspected. Probable mild central canal stenosis. No acute fracture or evidence of dislocation. No worrisome lytic or blastic bone lesion. IMPRESSION: Postoperative and degenerative change within the lumbar spine as described above. Lucency adjacent to the pedicle screws at L5 suggests loosening. Transcribed Date/Time: 08/25/2019 10:04 AM
== END 2019-08-25 09:22 | disposition home or self-care (01) ==
LOC: BICCT 09:21
PROVIDERS: ATTEND Neurological Surgery
DX: M54.5 Low back pain (principal); M47.816 Spondylosis without myelopathy or radiculopathy, lumbar region; Z98.890 Other specified postprocedural states
CPT/HCPCS: 72131

== ENCOUNTER 2019-10-03 12:40 | Outpatient (CLI) | payer MEDICARE ==
--- NOTE | 2019-10-03 13:10 | CT ---
EXAM: CT abdomen and pelvis without contrast PROVIDED CLINICAL HISTORY: Recurrent UTI COMPARISON: None FINDINGS: The visualized lung bases are free of significant opacity. There is no evidence for urinary tract calculi or hydronephrosis. The solid abdominal organs are suboptimally evaluated in the absence of IV contrast material but demo nstrate an unremarkable unenhanced CT appearance. Changes of prior cholecystectomy are seen. There is no bowel dilatation, inflammatory fat stranding, free fluid or lymph node enlargement appare nt. The urinary bladder appears grossly unremarkable. Sigmoid colonic diverticulosis is demonstrated without CT evidence for diverticulitis. The osseous structures demonstrate no concerning lytic or blastic lesions. Postoperative and degenera tive changes are seen involving the lumbar spine. IMPRESSION: No evidence for urinary tract calculi or hydronephrosis.
== END 2019-10-03 12:41 | disposition home or self-care (01) ==
LOC: BICCT 12:40
PROVIDERS: ATTEND Urology
DX: N39.0 Urinary tract infection, site not specified (principal); Z87.442 Personal history of urinary calculi
CPT/HCPCS: 74176

== ENCOUNTER 2020-03-25 11:01 | Outpatient (CLI) | payer MEDICARE ==
--- NOTE | 2020-03-25 11:36 | RAD ---
Exam: 3 views of lumbar spine COMPARISON: 08/15/2019 FINDINGS:5 lumbar type vertebra. Lumbar spine vertebral body height is maintained. There is no fractu re. Bilateral transpedicular screws at L4 and L5, without perihardware lucency Spondylolisthesis: Neutral: 1.1 cm of anterolisthesis of L4 upon L5 Extension: 1.0 cm of anterolisthesis of L4 upon L5 Action: 1.0 cm of anterolisthesis of L4 upon L5. Previously, there was approximately 1.1 cm of anterolisthesis of L4 upon L5 IMPRESSION: Uncomplicated lumbar fusion at L4-L5. Stable grade 1 anterolisthesis of L4 upon L5 without significan t change upon extension or flexion.
--- NOTE | 2020-03-25 14:11 | RAD ---
THREE VIEWS CERVICAL SPINE: 03/25/20 COMPARISON: None. HISTORY: Arthritis and pain. FINDINGS: Lateral examination demonstrates no anterolisthesis or retrolisthesis. There is disc space narrowing at C3-4 and C5-6 with mild posterior and anterior osteophyte formation. On the frontal imaging, there is mid cervical spine bilateral facet and uncovertebral osteophyte formation, most prominent on the right at C2-3. C3-4 and C4-5 and on the left at C4-5 and C5-6. Open mouth odontoid view demonstrates a normal appearing dens and C1-2 articulation. No prevertebral soft tissue swelling. IMPRESSION: Multilevel cervical spine degenerative change as detailed above. POS: [facility]
== END 2020-03-25 11:02 | disposition home or self-care (01) ==
LOC: TBSIIMAG 11:01
PROVIDERS: ATTEND Neurological Surgery
DX: M54.2 Cervicalgia (principal); M54.5 Low back pain; M47.812 Spondylosis without myelopathy or radiculopathy, cervical region; M43.16 Spondylolisthesis, lumbar region; Z98.1 Arthrodesis status
CPT/HCPCS: 72040; 72100

== ENCOUNTER → 2020-04-09 | Outpatient (CLI) | payer MEDICARE ==
[~2020-04-09] MED LIST: Magnevist 469MG/ML 20 ML VIAL ONE
--- NOTE | 2020-04-09 09:25 | MRI ---
LUMBAR SPINE MRI WITH AND WITHOUT CONTRAST: HISTORY: Lumbar fusion. Lumbar radiculopathy. COMPARISON: 08/08/2013. FINDINGS: Bilateral transpedicular screws at L4-L5 with associated metallic susceptibility artifact. Appropriat e T1 marrow signal intensity of the lumbar vertebra. No fracture. No significant STIR hyperintensity to suggest vertebral body edema or ligamentous injury. There are type I Modic changes at the L5-S1 level. Postcontrast images do not demonstrate any abnormal enhancement of the vertebral bodies. No abnormal enhancement of the thecal sac including the cauda equina and conus medullaris. Appropriate signal intensity in the visualized paraspinal muscles and solid organs. Conus medullaris terminates at the mid L1 level. Spondylolisthesis: 5.5 mm of anterolisthesis of L4 upon L5. T12-L1: Desiccation with mild loss of disc space height. Small left and right paracentral disc bulges . No significant central canal stenosis. Bilaterally, neural foramina are patent. L1-L2: Adequate disc hydration. Small central disc herniation abuts the thecal sac. No significant ce ntral canal stenosis. Bilaterally, neural foramina are patent. L2-L3: Adequate disc hydration. No posterior disc abnormality. No significant central canal stenosis or significant neural foraminal narrowing. L3-L4: Adequate disc hydration. Broad-based disc bulge, ligament flavum thickening and facet hypertro phy result in mild central canal stenosis. There is moderate facet hypertrophy with fluid in both facet joints. Mild bilateral neural foraminal narrowing. L4-L5: Disc desiccation with mild loss of disc space height. Broad-based disc bulge abuts the thecal sac. Mild central canal stenosis. Mild to moderate bilateral neural foraminal narrowing. There is T2 and STIR hyperintense along the posterior margin of the annulus with associated enhancement compat ible with annular fissure. Annular fissure starts along the posterior midline of the disc and extends into the right subareolar zone. Annular fissure abuts the traversing right L5 nerve root. L5-S1: Disc desiccation with mild loss of disc space height. Broad-based disc bulge does not cause an y significant mass effect upon the thecal sac. There is bilateral facet hypertrophy. Fluid in the left facet joint. Evaluation of the neural foramina is limited due to metallic susceptibly artifact. At least moderate bilateral neural foraminal narrowing. IMPRESSION: 1. L4-L5 lumbar fusion. Grade 1 anterolisthesis of L4 upon L5. 2. Type I Modic changes at L5-S1. 3. Annular fissure along the L4-L5 disc. Annular fissure abuts the traversing right L5 nerve root. Transcribed Date/Time: 04/09/2020 10:12 AM
== END ==
LOC: BICMRI 12:04
PROVIDERS: ATTEND Neurological Surgery
DX: M47.27 Other spondylosis with radiculopathy, lumbosacral region (principal); M43.16 Spondylolisthesis, lumbar region; Z98.1 Arthrodesis status
CPT/HCPCS: 72158; 82565; A9579

== ENCOUNTER 2020-05-07 07:12 | Outpatient (CLI) | payer MEDICARE, OTHER ==
[2020-05-07 12:21] LABS: Anion Gap 12 mmol/L (10-20); BUN (Urea Nitrogen) 21 mg/dL (9.8-20.1); Calc. Creatinine Clearance 0 mL/min (70-130); Carbon Dioxide 27 mmol/L (23-31); Chloride 104 mmol/L (98-107); Estimated GFR-MDRD 59; Glucose 91 mg/dL (83-110); Potassium 3.8 mmol/L (3.5-5.1); Sodium 139 mmol/L (136-145)
[2020-05-08 12:38] LABS: SARS-CoV-2 MS2 Positive; SARS-CoV-2 N Gene Negative; SARS-CoV-2 S Gene Negative; SARS-CoV-2 by NAA Not Detected (NotDetected); SARS-CoV-2 orf1ab Negative
== END 2020-05-07 07:13 | disposition home or self-care (01) ==
LOC: LABBT 07:12
PROVIDERS: ATTEND Neurological Surgery
DX: Z01.818 Encounter for other preprocedural examination (principal); Z11.59 Encounter for screening for other viral diseases; M54.16 Radiculopathy, lumbar region
CPT/HCPCS: 80048; 93005; U0003; 87635; 93010

== ENCOUNTER 2020-05-12 07:29 | Day surgery (SDC) | payer MEDICARE ==
[2020-05-05 11:21] VITALS: BMI 33.8
[2020-05-12] MEDS ORDERED: PHENYLEPHRINE-NS 100 MCG/ML 10 ML SYRINGE ONE (08:58)
[2020-05-12] MEDS ORDERED: Rocuronium Bromide 10 MG/ML (10ML VIAL) ONE (08:58)
[2020-05-12] MEDS ORDERED: Glycopyrrolate 0.2 MG/ML 5 ML SYRINGE ONE (08:58)
[2020-05-12] MEDS ORDERED: Ketorolac Tromethamine 30 MG/ML VIAL ONE (08:58)
[2020-05-12] MEDS ORDERED: Lidocaine 1% PF 5 ML VIAL ONE (08:58)
[2020-05-12] MEDS ORDERED: PROPOFOL 200 MG/20 ML VIAL ONE (08:58)
[2020-05-12] MEDS ORDERED: Ondansetron PF 4 MG/2 ML Vial ONE ×2 (08:58→10:12)
[2020-05-12] MEDS ORDERED: Bupivacaine HCl 0.5%/Epinephrine 1:200,000/PF 30 ml Vial ONE (09:09)
[2020-05-12] MEDS ORDERED: Thrombin 5000 UNITS/5 ML VIAL ONE (09:11)
[2020-05-12] MEDS ORDERED: Fentanyl 100 MCG/2 ML VIAL ONE (09:41)
--- NOTE | 2020-05-12 15:02 | OP ---
DATE OF PROCEDURE: 05/12/2020 ROUTE DELIVERY DRIVER: Ever Clement PA-C INDICATION: Pain. DIAGNOSIS: Lumbar radiculopathy. PROCEDURE PERFORMED: Left L5 decompression. ANESTHESIA: General. DESCRIPTION OF PROCEDURE: The patient was brought into the operating room and placed under general anesthesia. She was flipped from the supine to prone position on the operating room table. A linear incision was planned at the L5 segment. After prepping and draping and after an appropriate preoperative pause, the incision was created. The soft tissues were swept left of midline. A self-retaining retractor was placed for optimal exposure. After confirming the appropriate level with C-arm fluoroscopy, rongeur as well as Kerrisons were used to perform a laminectomy along the inferior aspect of L5 and the superior aspect of S1. The laminectomy was extended laterally to encompass the medial aspect of the facet joints in order to decompress the lateral recesses. After decompressing the lateral recesses, which would include the exiting L5 and descending S1, I then performed proximal foraminotomy of the exiting L5 nerve root. I palpated the disk and there was no significant disk protuberances and therefore, no annulotomy was performed. After completing the decompression, the wound was irrigated. Hemostasis was maintained throughout. The wound was then closed in anatomic layers, and a pressure dressing was applied. There were no known procedural complications. Job ID: [id number]
== END 2020-05-12 13:30 | disposition home or self-care (01) ==
LOC: SDC 07:29
PROVIDERS: ATTEND Neurological Surgery
PROC: 01NB0ZZ Release Lumbar Nerve, Open Approach (ICD-10-PCS; principal; 2020-05-12)
DX: M54.16 Radiculopathy, lumbar region (principal); G47.33 Obstructive sleep apnea (adult) (pediatric); I10 Essential (primary) hypertension; M19.90 Unspecified osteoarthritis, unspecified site; E03.9 Hypothyroidism, unspecified; G35 Multiple sclerosis; Z79.52 Long term (current) use of systemic steroids; Z79.899 Other long term (current) drug therapy; Z88.5 Allergy status to narcotic agent
CPT/HCPCS: 76000; J0670; J0690; J1885; J2405; J2704; J3010

== ENCOUNTER 2020-07-23 08:25 | Outpatient (CLI) | payer MEDICARE ==
--- NOTE | 2020-07-23 11:34 | RAD ---
LEFT HIP 2 VIEWS: HISTORY: Left hip pain. COMPARISON: 08/15/2019 exam. FINDINGS: He bones appear demineralized. There are arthritic changes of the hip which are similar to the prior exam. No significant joint space narrowing. IMPRESSION: Mild arthritic changes of the left hip. No acute process. Essentially stable exam. POS: NUHA
--- NOTE | 2020-07-23 11:35 | RAD ---
RIGHT HIP 2 VIEWS: HISTORY: Acute back and right hip pain. COMPARISON: 08/15/2019 study. FINDINGS: Joint space is fairly well preserved. Some minimal arthritic change is noted. No fracture. Small a malissa of ossification adjacent to the greater trochanter is probably related to old calcific tendinosis . IMPRESSION: Essentially stable exam. No acute finding. POS: NUHA
--- NOTE | 2020-07-23 11:38 | RAD ---
LUMBAR SPINE 2 VIEWS: HISTORY: Acute midline and low back pain without sciatica. COMPARISON: 03/25/2020. FINDINGS: Laminectomy changes with pedicle screw fixation at L4-L5 with prominent stable grade I anterolisthesi s. Mild levoconvexity of the upper lumbar lower thoracic vertebral column. IMPRESSION: Stable postoperative lumbar spine with anterolisthesis of L4 and L5. POS: RRE
== END 2020-07-23 08:26 | disposition home or self-care (01) ==
LOC: BICRAD 08:25
PROVIDERS: ATTEND Family Medicine
DX: M54.5 Low back pain (principal); M43.16 Spondylolisthesis, lumbar region; M16.12 Unilateral primary osteoarthritis, left hip; Z98.890 Other specified postprocedural states
CPT/HCPCS: 72100

== ENCOUNTER 2021-03-17 10:23 | Outpatient (CLI) | payer MEDICARE ==
[2021-03-17 20:42] LABS: SARS-CoV-2 NAA Rapid Test Not Detected (NotDetected)
== END 2021-03-17 10:24 | disposition home or self-care (01) ==
LOC: LABBT 10:23
PROVIDERS: ATTEND Nurse Practitioner Acute Care
DX: Z01.812 Encounter for preprocedural laboratory examination (principal); Z20.822 Contact with and (suspected) exposure to COVID-19
CPT/HCPCS: U0002; U0005

== ENCOUNTER 2021-03-21 09:59 | Day surgery (SDC) | payer MEDICARE ==
[2021-03-18 12:17] VITALS: BMI 36.6
[2021-03-21] MEDS ORDERED: Phenylephrine 10 MG/ML VIAL ONE (12:03)
[2021-03-21] MEDS ORDERED: PROPOFOL 200 MG/20 ML VIAL ONE (12:30)
[2021-03-21] MEDS ORDERED: ePHEDrine Sulfate 50 MG/10 ML VIAL ONE (12:30)
== END 2021-03-21 17:08 | disposition home or self-care (01) ==
LOC: MRI 09:59
PROVIDERS: ATTEND Nurse Practitioner Acute Care
DX: G35 Multiple sclerosis (principal); M48.02 Spinal stenosis, cervical region; M25.78 Osteophyte, vertebrae; D18.09 Hemangioma of other sites; M48.04 Spinal stenosis, thoracic region; M51.25 Other intervertebral disc displacement, thoracolumbar region; M48.05 Spinal stenosis, thoracolumbar region; M43.16 Spondylolisthesis, lumbar region; M48.07 Spinal stenosis, lumbosacral region; Z79.2 Long term (current) use of antibiotics; Z79.52 Long term (current) use of systemic steroids; Z79.899 Other long term (current) drug therapy; Z88.5 Allergy status to narcotic agent; Z98.1 Arthrodesis status
CPT/HCPCS: 36415; 70553; 72156; 72157; 72158; 82565; A9579; J2370; J2704

== ENCOUNTER 2021-04-07 12:46 | Emergency (ER) | payer MEDICARE ==
[2021-04-07 14:32] LABS: #Eosinphils 0.2 thou/uL (0.0-0.7); #Lymphocytes 1.7 thou/uL (1.20-3.40); #Monocytes 0.5 thou/uL (0.11-0.59); #Neutrophils 4.3 thou/uL (1.40-6.50); %Basophils 0.5 % (0.0-1.0); %Eosinophils 3.7 % (0.0-10.0); %Monocytes 7.5 % (0.0-10.0); %Neutrophils 63.3 % (42.0-75.0); Hemoglobin 14.6 g/dL (12.0-16.0); Mean Corpuscular HGB CONC 32.2 g/dL (32.0-36.0); Mean Corpuscular Hemoglobin 29.7 pg (27.0-31.0); Mean Corpuscular Volume 92.3 fL (78.0-98.0); Platelet Count 238 thou/uL (130-400); RBC Distribution Width 14.2 % (11.5-14.5); Red Blood Cell (RBC) Count 4.91 mill/uL (4.20-5.40); White Blood Cell (WBC) Count 6.8 thou/uL (4.8-10.8)
[2021-04-07 15:00] LABS: ALT (SGPT) 31 U/L (8-55); AST (SGOT) 27 U/L (5-34); Albumin 4.1 g/dL (3.4-4.8); Alkaline Phosphatase 52 U/L (40-110); Anion Gap 13 mmol/L (10-20); BUN (Urea Nitrogen) 21 mg/dL (9.8-20.1); Bilirubin, Total 0.6 mg/dL (0.2-1.2); Calc. Creatinine Clearance 0 mL/min (70-130); Calcium 9.3 mg/dL (7.8-10.44); Carbon Dioxide 29 mmol/L (23-31); Chloride 101 mmol/L (98-107); Globulin 2.7 g/dL (2.4-3.5); Glucose 104 mg/dL (83-110); Protein, Total 6.8 g/dL (5.8-8.1); Sodium 139 mmol/L (136-145)
[2021-04-07] MEDS ORDERED: diphenhydrAMINE 50 MG/ML VIAL ONE (15:40)
[2021-04-07] MEDS ORDERED: Metoclopramide HCl 10 MG/2 ML VIAL ONE (15:40)
[2021-04-07] MEDS ORDERED: Acetaminophen 500 MG TAB ONE (15:40)
[2021-04-07 17:18] LABS: Bilirubin Negative (Negative); Blood, Urine Negative (Negative); Clarity Clear (Clear); Glucose, Urine (Dipstick) Normal (Negative); Ketone, Urine Negative (Negative); Leukocyte Negative Leu/uL (Negative); Nitrite Negative (Negative); Protein, Urine (Dipstick) Negative (Neg-Trace); Specific Gravity, Urine 1.014 (1.002-1.036); Urobilinogen Normal mg/dL (Less than 2); pH, Urine 5.5 (5.0-9.0)
[2021-04-08 11:09] LABS: SARS-CoV-2 PCR by NAA Not Detected (NotDetected)
== END 2021-04-07 17:56 | disposition home or self-care (01) ==
LOC: ERS 12:46
DX: E03.9 Hypothyroidism, unspecified (principal); R51.9 Headache, unspecified; M35.3 Polymyalgia rheumatica; G35 Multiple sclerosis; I10 Essential (primary) hypertension; Z20.822 Contact with and (suspected) exposure to COVID-19
CPT/HCPCS: 70450; 71045; 81003; 83605; 83880; 84436; 84480; 84484; 87040; 87086; 93005; U0003; U0005; 36415; 80053; 84443; 85025; 96365; 96366; 96375; J1200; J2765

== ENCOUNTER 2021-08-12 08:37 | Outpatient (CLI) | payer MEDICARE | END 2021-08-12 08:38 | disposition home or self-care (01) | LOC: BICMAMMO 08:37 | PROVIDERS: ATTEND Internal Medicine Endocrinology, Diabetes & Metabolism | DX: Z12.31 Encounter for screening mammogram for malignant neoplasm of breast (principal); M81.0 Age-related osteoporosis without current pathological fracture | CPT/HCPCS: 77063; 77067; 77080 ==

== ENCOUNTER 2022-11-20 15:45 | Outpatient (CLI) | payer MEDICARE | END 2022-11-20 15:46 | disposition home or self-care (01) | LOC: RAD 15:45 | PROVIDERS: ATTEND Family Medicine | DX: R05.1 Acute cough (principal) | CPT/HCPCS: 71046 ==

== ENCOUNTER 2023-06-19 10:08 | Emergency (ER) | payer MEDICARE ==
[2023-06-19 11:05] LABS: #Eosinphils 0.2 thou/uL (0.0-0.7); #Monocytes 0.6 thou/uL (0.11-0.59); %Basophils 0.4 % (0.0-1.0); %Eosinophils 1.9 % (0.0-10.0); %Monocytes 7.1 % (0.0-10.0); %Neutrophils 79.2 % (42.0-75.0); Hematocrit 37.8 % (36.0-47.0); Hemoglobin 12.2 g/dL (12.0-16.0); Mean Corpuscular HGB CONC 32.3 g/dL (32.0-36.0); Mean Corpuscular Hemoglobin 30.2 pg (27.0-31.0); Mean Corpuscular Volume 93.6 fl (78.0-98.0); Mean Platelet Volume 10.3 fL (7.4-10.4); Platelet Count 201 10x3/uL (130-400); RBC Distribution Width 14.6 % (11.5-14.5); Red Blood Cell (RBC) Count 4.04 mill/uL (4.20-5.40); White Blood Cell (WBC) Count 8.9 10x3/uL (4.8-10.8)
[2023-06-19 11:42] LABS: ALT (SGPT) 19 U/L (8-55); AST (SGOT) 16 U/L (5-34); Albumin 3.5 g/dL (3.4-4.8); Alkaline Phosphatase 48 U/L (40-110); Anion Gap 12 mmol/L (10-20); BUN (Urea Nitrogen) 26 mg/dL (9.8-20.1); Bilirubin, Total 0.5 mg/dL (0.2-1.2); Calc. Creatinine Clearance 0 mL/min (70-130); Calcium 7.8 mg/dL (7.8-10.44); Carbon Dioxide 24 mmol/L (23-31); Chloride 104 mmol/L (98-107); Estimated GFR 62; Globulin 1.7 g/dL (2.4-3.5); Glucose 98 mg/dL (83-110); Potassium 3.9 mmol/L (3.5-5.1); Protein, Total 5.2 g/dL (5.8-8.1); Sodium 136 mmol/L (136-145)
[2023-06-19 12:00] LABS: Troponin I Less than 0.010 ng/mL (< 0.028)
[2023-06-19 12:29] LABS: Bacteria/HPF None Seen HPF (None Seen); Bilirubin Negative (Negative); Blood, Urine Negative (Negative); CAUTI Indications for Culture Dysuria,urgency,freq; Clarity Clear (Clear); Glucose, Urine (Dipstick) Normal (Negative); Ketone, Urine Negative (Negative); Leukocyte Negative Leu/uL (Negative); Nitrite Negative (Negative); Protein, Urine (Dipstick) Negative (Neg-Trace); RBC/HPF 0-3 HPF (0-3); Specific Gravity, Urine 1.011 (1.002-1.036); Squamous Epithelial 0-3 HPF (0-3); Urobilinogen Normal mg/dL (Less than 2); WBC/HPF None Seen HPF (0-3)
[2023-06-19 12:31] LABS: Urine Culture Reflex No No
== END 2023-06-19 13:39 | disposition home or self-care (01) ==
LOC: ERS 10:08
DX: I95.9 Hypotension, unspecified (principal)
CPT/HCPCS: 36415; 71045; 80053; 81001; 84484; 85025; 93005; 96360

== ENCOUNTER 2023-11-07 15:32 | Outpatient (CLI) | payer MEDICARE | END 2023-11-07 15:33 | disposition home or self-care (01) | LOC: BICRAD 15:32 | PROVIDERS: ATTEND Internal Medicine Rheumatology | DX: M25.531 Pain in right wrist (principal); M25.532 Pain in left wrist; M25.542 Pain in joints of left hand; M25.572 Pain in left ankle and joints of left foot; M25.571 Pain in right ankle and joints of right foot; M18.0 Bilateral primary osteoarthritis of first carpometacarpal joints; M18.12 Unilateral primary osteoarthritis of first carpometacarpal joint, left hand; M19.072 Primary osteoarthritis, left ankle and foot ==

== ENCOUNTER 2024-04-18 07:53 | Outpatient (CLI) | payer MEDICARE ==
[2024-04-18] MEDS ORDERED: Regadenoson 0.4 MG/5 ML SYRINGE ONE (10:15)
== END 2024-04-18 07:54 | disposition home or self-care (01) ==
LOC: NM 07:53
PROVIDERS: ATTEND Physician Assistant Medical
DX: R06.02 Shortness of breath (principal)
CPT/HCPCS: 78452; 93017; A9502; J2785 ×2